=== PATIENT | female | born 1960 | race Caucasian/White ===

== ENCOUNTER → 2016-08-07 | Outpatient (CLI) | payer OTHER ==
[~2016-08-07] MED LIST: ASCO500C4 PO; ATOR-22 PO; CIPR-255 PO; LORA10TA5 PO; MULT-506 PO; OXYC7.5T65 PO
--- NOTE | 2016-08-07 09:06 | DIAGNOSTIC IMAGING REPORT ---
KUB CLINICAL HISTORY: N20.1 Ureteral [id number] COMPARISON STUDY: 07/11/2016 FINDINGS: 2 views are provided for interpretation. There has been interval placement of a double-pigtail right-sided nephroureteral stent. There is 8 mm lower pole right renal calculus. There is a punctate calcification projected over the midpole the left kidney. There is a punctate calcification within the pelvis. There is no pathologic bowel dilatation IMPRESSION: 1. Interval placement of a double-pigtail right-sided ureteral stent 2. 8 mm right renal calculus and equivocal punctate left renal calculus 3. Nonspecific punctate calcification within the pelvis. A tiny bladder calculus cannot be excluded Electronically signed by: Prem Owen M.D. 08/07/2016 9:04 AM Dictated Date/Time: 08/07/2016 9:02 AM
== END | disposition home or self-care (01) ==
LOC: C.RAD 08:08
PROVIDERS: ATTEND Nurse Practitioner Family
DX: N20.1 Calculus of ureter (principal); N20.0 Calculus of kidney

== ENCOUNTER → 2016-11-12 | Outpatient (CLI) | payer OTHER ==
[2016-11-12 16:59] LABS: BLOOD UREA NITROGEN 34 mg/dl (7-18); BUN/CREATININE RATIO 31.2 (10-20); CALCIUM 9.9 mg/dl (8.5-10.1); CARBON DIOXIDE 28 mmol/L (21-32); CHLORIDE 108 mmol/L (98-107); GLUCOSE 93 mg/dl (70-99); POTASSIUM 4.6 mmol/L (3.5-5.1); SODIUM 142 mmol/L (136-145)
[2016-11-12 17:00] LABS: PHOSPHORUS 3.7 mg/dl (2.5-4.9)
== END | disposition home or self-care (01) ==
LOC: C.LAB 15:42
PROVIDERS: ATTEND Internal Medicine Nephrology
DX: N20.0 Calculus of kidney (principal); N20.1 Calculus of ureter; N28.9 Disorder of kidney and ureter, unspecified

== ENCOUNTER → 2016-11-25 | Outpatient (CLI) | payer OTHER ==
[~2016-11-25] MED LIST changes: +OPTIRAY 300 IV PRN
--- NOTE | 2016-11-25 15:21 | DIAGNOSTIC IMAGING REPORT ---
IVP W/OR W/O TOMOGRAMS CLINICAL HISTORY: N28.9 Acute renal [id number] Ureteral uucnoV26.0 Nephro nephrocalcinosis COMPARISON STUDY: CT abdomen and pelvis dated 07/22/2015 FINDINGS: Nonobstructing calcification mid/lower aspect right kidney. Study is performed following the intravenous injection of 100 cc nonionic contrast. Prompt opacification of the right renal collecting system. Right ureter is normal in course and caliber. Bladder fills well. Post void shows a moderate residual within left upper urinary tract. There is distention of the left renal pelvis and left renal collecting systems. This appears to be on a chronic basis. This is not appear to be a significant degree of left ureteral distention. IMPRESSION: 1. Chronic nonobstructing left renal hydronephrosis. 2. Several nonobstructing lower pole right renal calcifications. 3. No evidence for an obstructing urinary tract calculus. Electronically signed by: Dayron Edmonds M.D. 11/25/2016 3:16 PM Dictated Date/Time: 11/25/2016 3:13 PM
== END | disposition home or self-care (01) ==
LOC: C.RAD 12:21
PROVIDERS: ATTEND Urology
DX: N13.2 Hydronephrosis with renal and ureteral calculous obstruction (principal); Z87.448 Personal history of other diseases of urinary system

== ENCOUNTER → 2017-05-09 | Outpatient (CLI) | payer OTHER ==
[~2017-05-09] MED LIST changes: -OPTIRAY 300 IV PRN; -OXYC7.5T65 PO
[2017-05-09 15:52] LABS: BLOOD UREA NITROGEN 33 mg/dl (7-18); BUN/CREATININE RATIO 27.7 (10-20); CALCIUM 9.6 mg/dl (8.5-10.1); CARBON DIOXIDE 27 mmol/L (21-32); CHLORIDE 106 mmol/L (98-107); GLUCOSE 90 mg/dl (70-99); PHOSPHORUS 3.3 mg/dl (2.5-4.9); POTASSIUM 4.8 mmol/L (3.5-5.1); SODIUM 139 mmol/L (136-145)
== END | disposition home or self-care (01) ==
LOC: C.LABBC 14:05
PROVIDERS: ATTEND Internal Medicine Nephrology
DX: N28.9 Disorder of kidney and ureter, unspecified (principal)

== ENCOUNTER → 2017-11-11 | Outpatient (CLI) | payer OTHER ==
[~2017-11-11] MED LIST changes: +FUROSEMIDE INJ 10 MG/ML 2 ML VIAL IV ONE; -LORA10TA5 PO; +LORA10TA6 PO
--- NOTE | 2017-11-11 12:43 | DIAGNOSTIC IMAGING REPORT ---
RENAL SCAN DIURETIC (MAG 3) CLINICAL HISTORY: 57 years-old Female presenting with N13.30 Hydronephrosis of left kidney. TECHNIQUE: A nuclear diuretic renal scan is performed following the IV administration of 8.6 mCi technetium 99m radiolabeled MAG3. Posterior blood flow images were acquired at one frame every two seconds for a total 30 frames. Posterior static cortical phase images were acquired every 5 minutes for a total of 45 minutes. IV Lasix was administered at 20 minutes. Renal curves were calculated. COMPARISON: 08/04/2015. FINDINGS: On the blood flow phase images, asymmetric perfusion of the kidneys with relative hypoperfusion of the left kidney. This is similar to prior exam. On the cortical phase images, normal accumulation of radiotracer in the right renal parenchyma and excretion into the right renal collecting system and bladder. Delayed accumulation of radiotracer in the left renal collecting system and delayed excretion. Subsequently, clearance phase imaging demonstrates time to peak on the right measuring 4 minutes and on the left was measuring 42 minutes. The time from max to half max pre-Lasix on the right measures 18 minutes and on the left not measurable. The time to half post Lasix on the right measures 6 minutes and on the left not measurable. Abnormal retention of radiotracer in the left renal collecting system after furosemide administration. Right: Approximate counts at 3 minutes: 600 Approximate counts at 20 minutes: 425 Approximate counts at peak: 700 Ratio of counts at 20 minutes/3 minutes: 0.71 Ratio of counts at 20 minutes/peak: 0.61 Left: Approximate counts at 3 minutes: 200 Approximate counts at 20 minutes: 450 Approximate counts at peak: 500 Ratio of counts at 20 minutes/3 minutes: 2.25 Ratio of counts at 20 minutes/peak: 0.9 Split function measurements of 74% on the right and 26% on the left. Reference ranges: Normal time to peak: 3 to 5 minutes. Normal time from peak to half max pre-Lasix: 8-12 minutes. Ratio of counts at 20 minutes/3 minutes should be less than 0.8 and 20 minutes/peak less than 0.3. Washout of at least 50% of tracer within 10 minutes post Lasix normal; if greater than 50% retention between 10 to 20 minutes post Lasix, indeterminate for obstruction; if greater than 50% retention beyond 20 minutes, suspected obstruction. IMPRESSION: 1. Findings consistent with left hydronephrosis. This is unchanged from the prior exam. 2. Diminished renal function of the right kidney from normal. No hydronephrosis. 3. Relative renal function on the right 74% and on the left kidney 26%. Electronically signed by: Calvin Kramer M.D. 11/11/2017 12:42 PM Dictated Date/Time: 11/11/2017 12:35 PM
--- NOTE | 2017-11-11 13:27 | DIAGNOSTIC IMAGING REPORT ---
KUB HISTORY: Bilateral nephrolithiasis. N20.1 Ureteral ejsteV41.0 [id number] Ureteric [id number] COMPARISON: IVP 11/25/2016. FINDINGS: The bowel gas pattern is non-obstructive. There is no organomegaly. Renal shadows are partially obscured by bowel gas. 8 mm calculus is noted within the region of the interpolar right kidney. No definite left-sided nephrolithiasis or ureteral calculi. Calcifications of the left hemipelvis suggest phleboliths. No pneumoperitoneum or pneumatosis. No fracture. Moderate degenerative changes about the spine and bilateral hips. IMPRESSION: Right-sided nephrolithiasis without ureteral calculi identified. Electronically signed by: Fred Goodwin M.D. 11/11/2017 1:26 PM Dictated Date/Time: 11/11/2017 1:23 PM
[2017-11-11 15:09] LABS: BLOOD UREA NITROGEN 30 mg/dl (7-18); CREATININE 1.03 mg/dl (0.60-1.20)
== END | disposition home or self-care (01) ==
LOC: C.NUCL 11:05
PROVIDERS: ATTEND Urology
DX: N20.2 Calculus of kidney with calculus of ureter (principal); N13.30 Unspecified hydronephrosis

== ENCOUNTER 2021-01-24 05:00 | Observation (INO) ==
--- NOTE | 2021-01-05 12:51 | PAT Medication Instructions ---
Medication Instructions Date of Service January 05, 2021 Home Medications amlodipine 2.5 mg tablet 2.5 mg PO QAM ascorbic acid (vitamin C) 500 mg tablet 500 mg PO QAM atorvastatin 20 mg tablet 20 mg PO HS multivitamin 1 tab PO QAM cholecalciferol (vitamin D3) 25 mcg (1,000 unit) capsule 1,000 units PO QAM naproxen sodium [Aleve] 220 mg PO Q12H PRN omeprazole 20 mg PO BID potassium citrate 15 meq PO TIDM ASK your surgeon for instructions naproxen sodium [Aleve] 220 mg PO Q12H PRN DO NOT take the morning of surgery ascorbic acid (vitamin C) 500 mg tablet 500 mg PO QAM multivitamin 1 tab PO QAM cholecalciferol (vitamin D3) 25 mcg (1,000 unit) capsule 1,000 units PO QAM potassium citrate 15 meq PO TIDM Take morning of surgery With a small sip of water, OTHERWISE NOTHING TO EAT OR DRINK AFTER MIDNIGHT: amlodipine 2.5 mg tablet 2.5 mg PO QAM omeprazole 20 mg PO BID Take evening before surgery atorvastatin 20 mg tablet 20 mg PO HS omeprazole 20 mg PO BID potassium citrate 15 meq PO TIDM Other Notes If you have any questions please call us at [phone] or [phone] or [phone] or [phone]
--- NOTE | 2021-01-10 13:58 | Anesthesiology Consultation ---
Date of Service January 10, 2021 Assessment & Plan (1) Encounter for pre-operative examination: COVID screening: Per assessment on 01/10: Travel screen negative, no known COVID- 19 positive contacts or current COVID-19 related symptoms. Patient vaccinated. Surgeon arranging preop COVID testing (scheduled 01/22; [place]). Awaiting results. Chart Review Chart Review: Acceptable Risk for Surgery and Patient seen in Pre Admission Testing Teaching & Discussion Pre-Anesthesia Teaching/Discussion Notes: Instructed NPO after midnight before surgery,except medications with 15 cc of water. Medication instructions provided according to the PAT guidelines. History Surgery Operation Date: 01/24/21 13:55 Proposed Procedures p Left Total Knee Arthroplasty - Mookie Betancourt MD Height/Weight Height: 5 ft 5 in Weight: 119.7 kg Allergies Allergy/AdvReac Type Severity Reaction Status Date / Time adhesive tape Allergy Unknown Redness Verified 01/10/21 14:12 silver Allergy Unknown Irritation Verified 01/10/21 14:12 (earrings/ring) Sulfa (Sulfonamide Allergy Unknown Facial Verified 01/10/21 14:12 Antibiotics) swelling tomato Allergy Unknown Hives Verified 01/10/21 14:12 latex AdvReac Mild Swelling, Verified 01/10/21 14:12 redness, contact dermatitis Medications Home Medications Medication Instructions Recorded Confirmed Last Taken amlodipine 2.5 mg tablet 2.5 mg PO QAM 04/19/19 01/02/21 04/27/20 ascorbic acid (vitamin C) 500 mg 500 mg PO QAM 04/19/19 01/02/21 04/27/20 tablet atorvastatin 20 mg tablet 20 mg PO HS 04/19/19 01/02/21 04/27/20 multivitamin 1 tab PO QAM 04/19/19 01/02/21 04/27/20 cholecalciferol (vitamin D3) 25 1,000 units PO QAM cap 01/24/20 01/02/21 04/27/20 mcg (1,000 unit) capsule naproxen sodium [Aleve] 220 mg PO Q12H PRN 04/28/20 01/02/21 04/28/20 06:00 220 mg omeprazole 20 mg PO BID 04/28/20 01/02/21 04/27/20 potassium citrate 15 meq PO TIDM 04/28/20 01/02/21 04/27/20 Past Medical History Medical History Arthritis of knee, left GERD (gastroesophageal reflux disease) controlled Hyperlipidemia Hypertension Obesity, Class III, BMI 40-49.9 (morbid obesity) Osteoarthritis Exercise / Class Metabolic Activity II 4-5 Yardwork/Stairs/Walk up hill (one FS (no CP, no SOB)) Past Family History Family History Mother Cancer uterine Other No family history of adverse response to anesthesia Past Surgical History Surgical History H/O lithotripsy Multiple H/O nephrolithotomy with removal of calculi History of colonoscopy History of cystoscopy Cystoscopy (07/23/15): MAC at [facility] History of parathyroid surgery Parathyroid nodule removal S/P left knee arthroscopy S/P left knee arthroscopy S/P JASVIR (total abdominal hysterectomy) with LSO Past Anesthesia History No Hx of Anesthesia Complications and No Family Hx of Anesthesia Complications History of PONV No Hx of PONV and No Hx of Motion Sickness Social History Smoking Status: Never smoker Do You Dip or Chew Tobacco: No Hx Alcohol Use: No (Quit 1999) Hx Substance Use: Yes (none in the last 10 years) substance use type: heroin Review of Systems Patient denies chest pain, shortness of breath, dyspnea on exertion, fever, chills, cough, wheezing, palpitations. Physical Exam Vital Signs VITALS BP 126/88 P 62 TEMP 98.8 SP02 98%RA RESP 16 PHYSICAL Full cervical extension range of motion. Full TMJ range of motion. TMD 4 finger breaths Mallampati Score 3 Dentition: missing molars Lungs: clear throughout to auscultation Cardiac: regular rate and rhythm, no murmurs noted Spine: normal Carotid arteries: negative bruit Extremities: no edema Lab Results Anesthesia Preop Results Results Anesthesia Widget: WBC 7.99 K/uL (4.8-10.8) 01/10/21 Hgb 14.5 g/dL (12.0-16.0) 01/10/21 Hct 44.0 % (37-47) 01/10/21 Plt 244 K/uL (130-400) 01/10/21 Na 141 mmol/L (136-145) 01/10/21 K 4.1 mmol/L (3.5-5.1) 01/10/21 Cl 107 mmol/L (98-107) 01/10/21 CO2 25 mmol/L (21-32) 01/10/21 BUN 27 mg/dl (7-18) H 01/10/21 Creat 1.03 mg/dl (0.6-1.2) 01/10/21 Glucose Level 126 mg/dl (70-99) H 01/10/21 PT 10.6 Seconds (9.0-12.0) 01/10/21 PTT 24.4 Seconds (21.0-31.0) 01/10/21 INR 1.0 (0.9-1.1) 01/10/21 HA1c 5.8 % (4.5-5.6) H 01/10/21 Urine Color Yellow 01/10/21 Urine Appearance Clear (Clear) 01/10/21 Urine pH 5.0 (4.5-7.5) 01/10/21 Urine Specific [place] 1.015 (1.000-1.030) 01/10/21 Urine Protein Negative (Negative) 01/10/21 Urine Glucose (UA) Negative (Negative) 01/10/21 Urine Ketones Negative (Negative) 01/10/21 Urine Blood Negative (Negative) 01/10/21 Urine Nitrite Negative (Negative) 01/10/21 Urine Bilirubin Negative (Negative) 01/10/21 Urine Urobilinogen Negative (Negative) 01/10/21 Urine Leukocyte Esterase 1+ (Negative) H 01/10/21 Urine WBC (Auto) 1-5 /hpf (0-5) 01/10/21 Urine RBC (Auto) 0-4 /hpf (0-4) 01/10/21 Urine Hyaline Casts (Auto) 1-5 /lpf (0-5) 01/10/21 Urine Epithelial Cells (Auto) 20-30 /lpf (0-5) H 01/10/21 Urine Bacteria (Auto) Negative (Negative) 01/10/21 Blood Type A Positive 01/10/21 Antibody Screen NEGATIVE 01/10/21 Testing Electrocardiogram Date: 01/10/21 Findings: + NSR @ (61) Chest X-Ray Date: 01/10/21 Findings: + NAD
--- NOTE | 2021-01-21 20:58 | History & Physical Report ---
Date of Service January 21, 2021 Assessment & Plan (1) Primary osteoarthritis of left knee: Treatment options discussed with patient. She has failed conservative measures as above and surgical intervention recommended. Risks, benefits and alternatives to surgery including but not limited to infection, DVT, pain, stiffness, need for revision surgery, damage to blood vessels, damage to nerves, PE, , were discussed with the patient and they wish to proceed. Plan for left total knee arthroplasty at [facility] on 01/24/[address] Betancourt. Will plan on Xarelto 10mg daily post op for DVT prophylaxis. Will plan on outpatient PT post op. All questions answered. She will follow up in the office post operatively. History of Present Illness Chief Complaint: Left knee pain Primary Care Provider: Audrey Larry, 60 year old female with PMHx significant for HTN, high cholesterol, GERD, who presents with ongoing left knee pain. Pain interfering with her daily activities. She has failed conservative measures including PT, cortisone and viscosupplementation, bracing. She would like to proceed with knee replacement. Patient denies headaches, sweats, fevers, chills, double vision, blurred vision, cough, sore throat, dysphagia, chest pain, sob, wheezing, n/v/d/c, numbness, tingling, fatigue, urinary symptoms, mood disorders. ROS positive for left knee pain and stiffness. Allergies Allergy/AdvReac Type Severity Reaction Status Date / Time adhesive tape Allergy Unknown Redness Verified 01/10/21 14:12 silver Allergy Unknown Irritation Verified 01/10/21 14:12 (earrings/ring) Sulfa (Sulfonamide Allergy Unknown Facial Verified 01/10/21 14:12 Antibiotics) swelling tomato Allergy Unknown Hives Verified 01/10/21 14:12 latex AdvReac Mild Swelling, Verified 01/10/21 14:12 redness, contact dermatitis Home Medications Medication Instructions Recorded Confirmed Type amlodipine 2.5 mg tablet 2.5 mg PO QAM 04/19/19 01/02/21 History ascorbic acid (vitamin C) 500 mg 500 mg PO QAM 04/19/19 01/02/21 History tablet atorvastatin 20 mg tablet 20 mg PO HS 04/19/19 01/02/21 History multivitamin 1 tab PO QAM 04/19/19 01/02/21 History cholecalciferol (vitamin D3) 25 1,000 units PO QAM cap 01/24/20 01/02/21 History mcg (1,000 unit) capsule naproxen sodium [Aleve] 220 mg PO Q12H PRN 04/28/20 01/02/21 History omeprazole 20 mg PO BID 04/28/20 01/02/21 History potassium citrate 15 meq PO TIDM 04/28/20 01/02/21 History Past Med/Surg History Medical History Arthritis of knee, left GERD (gastroesophageal reflux disease) controlled Hyperlipidemia Hypertension Obesity, Class III, BMI 40-49.9 (morbid obesity) Osteoarthritis Surgical History H/O lithotripsy Multiple H/O nephrolithotomy with removal of calculi History of colonoscopy History of cystoscopy Cystoscopy (07/23/15): MAC at [facility] History of parathyroid surgery Parathyroid nodule removal S/P left knee arthroscopy S/P left knee arthroscopy S/P JASVIR (total abdominal hysterectomy) with LSO Family History Mother Cancer uterine Other No family history of adverse response to anesthesia Social History Smoking Status: Never smoker Second Hand Exposure: Yes (as a child, home and work in the past); Hx Alcohol Use: No (Quit 1999) Hx Substance Use: Yes (none in the last 10 years) Preferred Language: Filipino Communication Ability: Effective Concrete Pointer Required: No Beliefs That Will Affect Care: None Current Living Situation: Other Current Living Situation Comment: lives with a friend, Patricia current occupational status: employed Feels Safe at Home: Yes Assistive Devices: Cane and Glasses Review of Systems All systems reviewed & are unremarkable except as noted in HPI & below Physical Exam Constitutional: well developed and well nourished; no acute distress Eyes: PERRL, conjunctivae normal, anicteric sclerae ENMT: external ear and nose normal, oropharynx normal Neck: trachea midline, no thyromegaly Respiratory: normal respiratory effort, lungs clear to auscultation Cardiovascular: RRR, no murmur, no edema Musculoskeletal: Left knee: Varus alignment. Mild effusion. Tenderness diffusely with max tenderness medial joint line. Moderate amount of crepitation with ROM. ROM 35-100 degrees. Positive varus stress, stable to valgus. Positive Nuria's Skin: no rashes, warm and dry Neurologic: patellar DTR's 2+ bilat, sensation intact Psychiatric: A+Ox3, euthymic affect Results & Data ([place]) Diagnostic Findings X-rays: left knee demonstrate very severe osteoarthritis of the left knee. There is widening of the femur and tibia with large medial osteophytes, bone on bone with some bone loss in the medial compartment, advanced patellofemoral osteoarthritis, bone on bone in the medial patellofemoral joint space. There is marked varus alignment of the knee, including gapping of the lateral compartmen t due to stretching out of the lateral collateral ligament. Opposite knee he has mild OA with neutral amount of varus alignment.
[2021-01-24] MEDS ORDERED: LR 500ML BOLUS, THEN 15ML/HR IV SCH (06:00)
[2021-01-24] MEDS ORDERED: ACETAMINOPHEN 500 MG TAB PO SCH (06:00)
[2021-01-24] MEDS ORDERED: GABAPENTIN 600 MG DOSE PO SCH (06:00)
[2021-01-24] MEDS ORDERED: FAMOTIDINE 20 MG TAB PO SCH (06:00)
[2021-01-24] MEDS ORDERED: TRANEXAMIC ACID 1,000 MG **IV Pre-op IV SCH (06:00)
[2021-01-24] MEDS ORDERED: ceFAZolin 2000MG 2,000 MG/15 ML SYR IV SCH (06:00)
[2021-01-24] MEDS ORDERED: TRANEXAMIC ACID 1,000 MG **IV Intra-op IV SCH (06:00)
[2021-01-24] MEDS ORDERED: ROPIVACAINE 0.5% HCL/PF 150 MG, BUPIVACAINE 0.75% MPF 20 ML, EPINEPHrine 30MG/30ML (OR ... INFIL SCH (06:00)
[2021-01-24] MEDS ORDERED: dexAMETHasone 4 MG TAB PO SCH (06:00)
[2021-01-24] MEDS ORDERED: METOCLOPRAMIDE HCL 10 MG TABLET PO SCH (06:00)
[2021-01-24] MEDS ORDERED: BUPIVACAINE 0.5 % 5 MG/1 ML PF 10ML VIAL ONE (06:14)
[2021-01-24] MEDS ORDERED: ONDANSETRON INJ 2 MG/ML 2 ML VIAL IV PRN ×2 (06:43→12:17)
[2021-01-24] MEDS ORDERED: ATROPINE SULFATE 0.1 MG/ML 10ML SYR IV PRN (06:43)
[2021-01-24] MEDS ORDERED: ePHEDrine sulfate 50 MG/ML AMP IV PRN (06:43)
[2021-01-24] MEDS ORDERED: fentaNYL citrate 100 MCG/2 ML VIAL IV PRN (06:43)
[2021-01-24] MEDS ORDERED: PROPOFOL IV EMULSION 10 MG/ML 20 ML VIAL IV ONE ×6 (06:52→10:33)
[2021-01-24] MEDS ORDERED: fentaNYL citrate 100 MCG/2 ML VIAL ONE (06:53)
[2021-01-24] MEDS ORDERED: MIDAZOLAM HCL 1 MG/ML 2ML VIAL ONE (06:53)
[2021-01-24] MEDS ORDERED: ORTHO JOINT ANESTHETIC ONE (07:02)
--- NOTE | 2021-01-24 07:22 | History & Physical Bridge Note ---
Date of Service January 24, 2021 History & Physical Bridge Note I have examined the patient, reviewed the History & Physical and in the interval since the performance of the History & Physical I have noted the following changes of clinical significance: no changes noted
[2021-01-24] MEDS ORDERED: KETAMINE 50 MG/5 ML SYRINGE ONE (09:44)
[2021-01-24] MEDS ORDERED: KETOROLAC 30 MG/ML VIAL ONE (09:44)
[2021-01-24] MEDS ORDERED: ONDANSETRON INJ 2 MG/ML 2 ML VIAL ONE (10:11)
--- NOTE | 2021-01-24 10:46 | Post Operative Brief Note ---
Immediate Post Op Note v1 Date of Surgery January 24, 2021 Pre & Post Diagnosis Operation Date: 01/24/21 07:15 Pre-Op Diagnosis: Primary Osteoarthritis, Left Knee, morbid obesity, metal allergy Post-Op Diagnosis: Primary Osteoarthritis, Left Knee, morbid obesity, metal allergy I identified the patient and participated in the time-out.: Yes Procedure Operation Date: 01/24/21 07:15 Actual Procedures p Left Total Knee Arthroplasty(Left), increased difficulty obesity BMI 43- Mookie Betancourt MD Surgeon Mookie Betancourt MD Steam Flattener Jose SONG Estimated Blood Loss 20 Findings Consistent with Post-Op Diagnosis Specimens Bone cuts Drains Hemovac Drain Anesthesia Type MAC Spinal Regional Complications none Disposition Accompanied Patient To Recovery: No Disposition: Recovery Room Overlapping Procedure I was immediately available: during the entire case.
--- NOTE | 2021-01-24 11:05 | Operative Report ---
Post Operative Report Pre & Post Diagnosis Operation Date: 01/24/21 07:15 Pre-Op Diagnosis: Primary Osteoarthritis, Left Knee, morbid obesity BMI 43.0, metal allergy, adhesive allergy Post-Op Diagnosis: Primary Osteoarthritis, Left Knee, morbid obesity BMI 43.0, metal allergy, adhesive allergy I identified the patient and participated in the time-out.: Yes Procedure Operation Date: 01/24/21 07:15 Actual Procedures p Left Total Knee Arthroplasty(Left), increased difficulty morbid obesity BMI 43.0- Mookie Betancourt MD Surgeon Mookie Betancourt MD Can Closing Machine Operator Jose SONG Estimated Blood Loss 20 Findings Consistent with Post-Op Diagnosis Specimens Bone cuts Drains Bone cuts Anesthesia Type MAC Spinal Regional Complications none Disposition Accompanied Patient To Recovery: No Disposition: Recovery Room Indications 60-year-old female with very severe osteoarthritis her left knee failed conservative management. Radiographs demonstrate severe varus alignment of her knee with bone loss and medial compartment tricompartmental osteoarthritis Description of Procedure Patient taken to the operating room the size under spinal MAC regional anesthesia. Patient was placed supine on the operating table. A pneumatic tourniquet was placed about the very obese left upper thigh. The left lower extremity was prepped and draped in sterile fashion. Knee exam demonstrated 15 to 20 degree varus alignment of the knee with 20 degree flexion contracture and flexion to 85 degrees. The leg was elevated exsanguinated with an Esmarch bandage and pneumatic tourniquet was raised to 350 millimeters of mercury. Skin incised sharply in longitudinal fashion. Subcutaneous flaps elevated. Incision was made through the medial retinaculum extending up in the mid third of the quadriceps tendon and down to the medial tibial tubercle. Intra-articular findings demonstrated severe tricompartmental osteoarthritis with bone loss medial compartment bone loss patella significant thinning of the patella. Patella width was measured and was only 11 mm. There are tricompartmental osteophytes loose bodies chronic medial meniscus tear large osteophytes no pseudolaxity. The [employer] total knee arthroplasty system was used. To expose the knee the scarred infrapatellar fat pad was resected. The meniscal remnants and cruciate ligaments were resected. All loose bodies were excised. The anterior fat pad over the femur in the area of the anterior flange of the femoral component was resected. Lateral synovial bands release. The femur was exposed. An intramedullary drill hole was made into the canal. A guide reginald was placed. Distal femoral cutting guide was adjusted to resect a 5 degree valgus cut with +2 cut off standard distal femoral resection was resected. The knee was extended and a subperiosteal peel lateral release was performed around the patella. Patella width was measured. Very limited cut was made due to the thin patella just enough to resect the articular surface. The 3 drill holes were made and the excess lateral facet was beveled off to prevent any impingement. Attention was taken back to the femur which was exposed with retractors and the femoral sizing guide was pinned in position. The drill holes were placed in 3 of external rotation to match epicondylar axis. Femur sized for a 4 component. The 4-in-1 cutting block was placed and then the anterior posterior and chamfer cuts are made. The tibia was then subluxed. The external tibial cutting guide was just to make a perpendicular cut to the long axis of the tibia 1 mm below the most deficient bone loss medial side. A lamina food safety manager was used and the flexion extension gaps were not balanced. All posterior osteophytes removed. All meniscal remnants were resected. First the superficial MCL was released off the tibia and the medial capsule was released and posterior medial capsule was released and semimembranosus was released and despite all those releases the gaps were not balanced so I had to piecrust the MCL with an 11 blade. The tibia was exposed and the trial tibial component size 4 was externally rotated in line with the tibial tubercle and pinned in position. The drills and punch for stem were used. The femoral trial size 4 was centered appropriately and the femoral notch was made with the reamers and box osteotomes. The collet was placed. Trial tibial inserts were placed and size 18 posterior stabilized gave balanced ligaments through flexion and extension. Patella tracking was assessed. The patella tracked centrally. I was able to get full extension and flexion to between 95 and 100 degrees. The trial components were then removed and the orthomix anesthetic cocktail was injected per protocol. The knee was flexed up to placed a bone graft into the femoral drill hole and at that point the tourniquet popped and was dysfunctional. I temporarily rewrap the Esmarch from the foot to the thigh left it wrapped around the upper thigh so we could perform the cementing with tourniquet in place. The knee was then copiously irrigated with pulsatile lavage saline solution. Final components were then cemented with Simplex cement. Final components were [employer] left size 4 Oxinium posterior stabilized femur, size 4 titanium tibia with a 20 x 10 mm cemented stem. Patella size 32 symmetrical. After the cement cured the tourniquet was taken off and not used through the remainder of the procedure. the Betadine soak was used per protocol. further pulsatile lavage irrigation performed and 2 Hemovac drains were brought out laterally. The quadriceps tendon and medial retinaculum were closed with figure of 8 #1 Vicryl sutures. The knee was taken through full range of motion and the repair was secure 0 through 100 degrees range of motion.. The subcutaneous tissues were closed with 2-0 Vicryl sutures. Skin was closed with interrupted 3-0 nylon vertical mattress sutures due to the metal allergy and adhesive allergy.. Nonadhesive sterile dressings were applied. Patient procedure well. Was increased level difficulty due to both h er obesity and due to closure requirement due to allergies and this increased length of time of surgery by 30 to 40 minutes. Jose SONG was my physician administrative assistant office manager who assisted in patient positioning prepping and draping,leg positioning ,soft tissue retraction and instrument management and participated in the closing and will participate in postoperative care of the patient. The patient tolerated the procedure well. I attest to the content of the Intraoperative Record and any orders documented therein. Any exceptions are noted below.
--- NOTE | 2021-01-24 11:10 | Anesthesiology Progress Note ---
Date of Service January 24, 2021 Anesthesia Post Procedure Vital Signs Vital Signs: Temp Pulse Pulse Resp BP Pulse Ox 01/24/21 11:00 77 18 124/81 98 01/24/21 10:50 79 14 116/77 94 01/24/21 10:47 97.3 F L 86 16 115/88 94 01/24/21 06:00 98.4 F 72 20 107/84 93 01/24/21 05:20 98.8 F 82 22 135/89 92 Pain Intensity Left Knee: Pain Intensity: 8 Transfer of Care Handoff Completed per policy Notes Mental Status: alert / awake / arousable and participated in evaluation Patient Amnestic to Procedure: Yes Nausea / Vomiting: adequately controlled Pain: adequately controlled Airway Patency, RR, SpO2: stable & adequate BP & HR: stable & adequate Hydration State: stable & adequate Neuraxial Anesthesia: was administered and sensory block is resolving Anesthetic Complications: no major complications apparent and Pt Satisfied with anesthetic care
--- NOTE | 2021-01-24 11:31 | XRay Report ---
LEFT KNEE 2 VIEWS History: Left total knee arthroplasty. Degenerative arthritis. Postop. FINDINGS: The patient is status post a left total knee arthroplasty. The hardware is intact. No fract ure or dislocation. Surgical drains are in place. IMPRESSION: Left total knee arthroplasty. No evidence for hardware complication. ACT 112: Negative or not required by law. Electronically signed by: Kj Brink M.D. 01/24/2021 11:30 AM
[2021-01-24] MEDS ORDERED: MAGNESIUM HYDROXIDE SUSP 30 ML UDC PO PRN (12:17)
[2021-01-24] MEDS ORDERED: NALOXONE HCL 0.4 MG/1 ML VIAL/CARP IV PRN (12:17)
[2021-01-24] MEDS ORDERED: METOCLOPRAMIDE HCL INJ 5 MG/ML 2 ML VIAL IV PRN (12:17)
[2021-01-24] MEDS ORDERED: bisacodyL 10 MG SUPP PR PRN (12:17)
[2021-01-24] MEDS ORDERED: HYDROmorphone INJ 0.5 MG/0.5 ML SYR IV PRN (12:17)
[2021-01-24] MEDS ORDERED: SODIUM CHLORIDE 0.9% 1000ML 1,000 ML IV SCH (12:17)
[2021-01-24] MEDS: ceFAZolin 2000MG 2,000 MG/15 ML SYR IV SCH ×2 (14:26→22:26)
[2021-01-24] MEDS: ACETAMINOPHEN 500 MG TAB PO SCH ×2 (14:26→21:36)
--- NOTE | 2021-01-24 14:39 | Consultation ---
Date of Consultation January 24, 2021 Assessment & Plan (1) S/P total knee arthroplasty: Post op day# 0 S/P Left TKA by Dr Serafin CORONEL#20ml -pain management per ortho -wound management per ortho -PT/OT as appropriate -DVT prophylaxis per ortho -incentive spirometry -monitor H&H for acute blood loss anemia;pre-op Hgb: 13 (2) Hypertension: -Continue amlodipine (3) Hyperlipidemia: -Continue atorvastatin (4) Hyperparathyroidism: S/P parathyroidectomy (5) Depression: Stable -Not currently on meds (6) GERD (gastroesophageal reflux disease): -Continue PPI (7) Obesity, Class III, BMI 40-49.9 (morbid obesity): BMI: 43 -Lifestyle modifications recommended DVT Prophylaxis -SCDs per ortho Disposition per primary service Follows with Dr Audrey Larry for routine care Pt was seen and care coordinated with Dr Lara. See addendum Thank you for this consultation. We will follow the patient with you during their hospital stay. You [facility] Supervising Physician Co-Signing Physician Notes I saw this patient with the physician certified physical therapist assistant, I participated in the history, physical, review of systems, and physical exam on this consult. I reviewed the medications with the patient and the physician certified physical therapist assistant and helped reconcile the medications. I helped take a detailed family and social history as well. I formulated the assessment and plan personally with the physician certified physical therapist assistant and went over it with the patient. ROS-No Headache, No Visual Changes, No Nausea, No Vomiting, No Fever, No Chills, No Neck Pain or Stiffness, No Chest Pain, No Palpitations, No SOB, No FORMAN, No Cough, No Sputum, No Wheezing, No Abdominal Pain, No Diarrhea, No Hematemesis, No Hemoptysis, No Unexpected Weight Loss, No Flank pain, No Melena, No Hematochezia, No Frequency, No Urgency, No Burning, No Hematuria, No Rashes, No Diaphoresis. Appetite is Normal, Sore LLE Physical Exam Gen-AAO x 3, NAD, Afebrile, Obese Head-NCAT, EOMI, PERRLA, Anicteric Sclera, No Posterior Pharyngeal Erythema Neck-Supple, No JVD, No Thyromegaly, No Masses, No LAD, No Bruits Lungs-Clear to Auscultation Bilaterally, No Rales, No Rhonchi, No Wheezing, No Crepitus Chest-No S4, +S1, +S2, No S3, No Murmurs, No Rubs, No Gallops, No Ectopy Abdomen-Soft, Bowel Sounds Present, Non Tender, Non Distended, No Hepatomegaly, No Splenomegaly, No Palpable Masses, No Rebound, No Rigidity, No Guarding Musculoskeletal-No CVAT Extremities-No Cyanosis, No Clubbing, No Edema Nuero-Cranial Nerves II-XII grossly intact, Motor WNL, DTRs WNL, Strength WNL, Non Focal Psych-Normal Mood History of Present Illness Requesting Physician: Dr Betancourt Reason for Consultation: Post op medical management Attending Physician: Mookie Betancourt MD History of Present Illness Pt is 60 y/o F with PMH HTN, dyslipidemia, hyperparathyroidism s/p parathyroidectomy, depression, h/o hypercalcemia, morbid obesity seen in medical consultation s/p L TKA today by Dr Betancourt. Post op pt reports is doing well. Denies pain currently. Denies leg paresthesias, N/V, dizziness, HAGAN, CP, SOB. Was able to eat lunch without difficulty. Denies fever/chills, diaphoresis, neck pain, palpitations, cough, sore throat, choking, otalgia, rhinorrhea, abdominal pain, extremity weakness, extremity edema, rashes, urinary symptoms. Allergies Allergy/AdvReac Type Severity Reaction Status Date / Time adhesive tape Allergy Unknown Redness Verified 01/24/21 05:26 silver Allergy Unknown Irritation Verified 01/24/21 05:26 (earrings/ring) Sulfa (Sulfonamide Allergy Unknown Facial Verified 01/24/21 05:26 Antibiotics) swelling tomato Allergy Unknown Hives Verified 01/24/21 05:26 latex AdvReac Mild Swelling, Verified 01/24/21 05:26 redness, contact dermatitis Home Medications Medication Instructions Recorded Confirmed Type amlodipine 2.5 mg tablet 2.5 mg PO QAM 04/19/19 01/24/21 History ascorbic acid (vitamin C) 500 mg 500 mg PO QAM 04/19/19 01/02/21 History tablet atorvastatin 20 mg tablet 20 mg PO 04/19/19 01/24/21 History multivitamin 1 tab PO QAM 04/19/19 01/02/21 History cholecalciferol (vitamin D3) 25 1,000 units PO QAM cap 01/24/20 01/02/21 History mcg (1,000 unit) capsule naproxen sodium [Aleve] 220 mg PO Q12H PRN 04/28/20 01/24/21 History omeprazole 20 mg PO BID 04/28/20 01/24/21 History potassium citrate 15 meq PO TIDM 04/28/20 01/02/21 History Patient History Medical History (Updated 01/24/21 @ 14:44 by Erin Ordaz PA-C) Arthritis of knee, left Depression GERD (gastroesophageal reflux disease) controlled Hyperlipidemia Hyperparathyroidism , secondary, non-renal Hypertension Obesity, Class III, BMI 40-49.9 (morbid obesity) Osteoarthritis Surgical History (Updated 01/24/21 @ 14:44 by Erin Ordaz PA-C) H/O lithotripsy Multiple H/O nephrolithotomy with removal of calculi History of colonoscopy History of cystoscopy Cystoscopy (07/23/15): MAC at [facility] History of parathyroid surgery Parathyroid nodule removal S/P left knee arthroscopy S/P left knee arthroscopy S/P JASVIR (total abdominal hysterectomy) with LSO Family History Mother Cancer uterine Other No family history of adverse response to anesthesia Social History Smoking Status: Never smoker Second Hand Exposure: Yes (as a child, home and work in the past); Do You Dip or Chew Tobacco: No; Tobacco Cessation Education Requested by Patient: No Hx Alcohol Use: No (Quit 1999) Hx Substance Use: Yes (none in the last 10 years) Preferred Language: Guinean Communication Ability: Effective Avid Editor Required: No Beliefs That Will Affect Care: None Current Living Situation: Other Current Living Situation Comment: lives with a friend, Patricia current occupational status: employed Other Information That Helps Us Care for You: No Feels Safe at Home: Yes Safety Concerns: Feels Safe At This Time Assistive Devices: Cane and Walker Assistive Devices Comment: partial top Review of Systems Review of Systems: All systems reviewed & are unremarkable except as noted in HPI & below Physical Exam Physical Exam: General: no distress, [place] Head: normocephalic, atraumatic Eyes: conjunctiva non-injected, anicteric ENT: normal inspection external ears, nose, mucous membranes moist Neck: supple, trachea midline Lungs: clear, no respiratory distress, no wheezing/rhonchi/rales CV: RRR, no murmur, no pretibial edema Abd: protuberant, normal BS, soft, non-tender Ext: no calf tenderness, LLE: +left leg with surgical dressing and ROSARIO wrap in place, hemovac in place with serosanguineous drainage, pedal pushes and pulls intact bilaterally, distal pulses intact Neuro: A&O x 3, no focal deficits noted, normal affect Skin: warm, dry Results & Data ([facility]) Vital Signs (Past 12 Hours) Vital Signs Temp Pulse Pulse Resp BP Pulse Ox 01/24/21 14:29 36.4 C L 87 18 145/93 H 95 01/24/21 14:06 36.4 C L 01/24/21 13:45 75 16 136/84 90 01/24/21 12:26 36.4 C L 66 16 126/83 96 01/24/21 11:50 36.3 C L 68 14 123/85 92 01/24/21 11:25 36.6 C 66 16 129/77 94 01/24/21 11:10 36.7 C 81 16 113/78 95 01/24/21 11:00 77 18 124/81 98 01/24/21 10:50 79 14 116/77 94 01/24/21 10:47 36.3 C L 86 16 115/88 94 01/24/21 06:00 36.9 C 72 20 107/84 93 01/24/21 05:20 37.1 C 82 22 135/89 92
[2021-01-24] MEDS ORDERED: POTASSIUM CITRATE 10 MEQ TAB PO SCH (21:00)
[2021-01-24] MEDS: DOCUSATE SODIUM 100 MG CAP PO SCH (21:36)
[2021-01-24] MEDS: SENNA 8.6 MG TAB PO SCH (21:36)
[2021-01-24] MEDS: PANTOprazole 40 MG TAB PO SCH (21:36)
[2021-01-24] MEDS: ATORVASTATIN 20 MG TAB PO SCH (21:36)
[2021-01-25] MEDS: ACETAMINOPHEN 500 MG TAB PO SCH ×3 (05:41→21:31)
[2021-01-25 06:15] LABS: Hematocrit (blood only) 37.5 % (37-47); Hemoglobin 12.3 g/dL (12.0-16.0); Mean Corpuscular Hemoglobin 29.2 pg (25-34); Mean Corpuscular Hgb Conc 32.8 g/dL (32-36); Mean Corpuscular Volume 89.1 fL (80-100); Mean Platelet Volume 11.1 fL (7.4-10.4); Platelet Count 229 K/uL (130-400); RDW Coefficient of Variation 14.1 % (11.5-14.5); Red Blood Count 4.21 M/uL (4.2-5.4); White Blood Count 20.84 K/uL (4.8-10.8)
[2021-01-25 06:56] LABS: BUN Creatinine Ratio 26.2 (10-20); Calcium 8.7 mg/dl (8.5-10.1); Creatinine Clr Calc Pharmacy 62.2 ml/min; Est GFR (African American) 56.1 ml/min; Est GFR (Non-African American) 48.4 ml/min; Potassium 4.5 mmol/L (3.5-5.1)
--- NOTE | 2021-01-25 07:02 | Orthopedic Progress Note ---
Date of Service January 25, 2021 Assessment & Plan (1) Status post left knee replacement: POD#1 Left TKA -PT/OT -Pain management as written -DVT prophylaxis-SCDs, TEDs, Xarelto 10mg daily -AM labs-hemoglobin at 12.3 this am from 14.5 preop. Mild increase in creatinine to 1.2 this morning. Leukocytosis likely reactive due to surgical stress/perioperative steroids. -D/C planning-home with plans on outpatient PT. Hemovac output 150 last shift. Will recheck later after PT to see how therapy goes and recheck drainage. Possible dishcarge today if PT goes well and drainage decreases. Admission and Anticipated Discharge Date Admission Date: January 24, 2021 Supervising Physician Co-Signing Physician Notes Patient seen and examined. Agree with NOHEMI Saleh's note as above. Patient staying for 1 more night due to high Hemovac drain output. Plan for discharge home tomorrow if drain output decreases. Subjective POD#1. Patient doing well, pain well controlled. No current complaints. Denies chest pain, sob, dizziness, n/v/d, headache, fever, chills. Review of Systems Review of Systems: All systems reviewed & are unremarkable except as noted in Subjective Physical Exam 2 Physical Exam: Dressing to left knee is c/d/i, hemovac intact. Toes mobile. good dorsiflexion. No calf tenderness, calf soft. Distally n/v status and senstation intact. Constitutional: well developed and well nourished; no acute distress Results & Data ([facility]) Vital Signs (Past 12 Hours) Vital Signs Temp Pulse Resp BP Pulse Ox 01/25/21 02:56 36.7 C 90 16 98/63 L 93 01/24/21 22:22 36.7 C 80 16 150/79 H 95 01/24/21 19:20 36.5 C 79 16 118/71 91
--- NOTE | 2021-01-25 08:36 | Hospitalist Progress Note ---
Date of Service January 25, 2021 Assessment & Plan (1) S/P total knee arthroplasty: S/P Left TKA by Dr Betancourt 01/24 EBL#20ml Resume Post Op Care per Surgery Protocol Incentive Spirometry 10x per Hour Resume Relative Home Meds Where Appropriate PT/OT with appropriate fall precautions PO Pain control DVT Prophylaxis Per Surgery Protocol Monitor Daily Labs, DC today ROS-No Headache, No Visual Changes, No Nausea, No Vomiting, No Fever, No Chills, No Neck Pain or Stiffness, No Chest Pain, No Palpitations, No SOB, No FORMAN, No Cough, No Sputum, No Wheezing, No Abdominal Pain, No Diarrhea, No Hematemesis, No Hemoptysis, No Unexpected Weight Loss, No Flank pain, No Melena, No Hematochezia, No Frequency, No Urgency, No Burning, No Hematuria, No Rashes, No Diaphoresis. Appetite is Normal Physical Exam Gen-AAO x 3, NAD, Afebrile, obese Head-NCAT, EOMI, PERRLA, Anicteric Sclera, No Posterior Pharyngeal Erythema Neck-Supple, No JVD, No Thyromegaly, No Masses, No LAD, No Bruits Lungs-Clear to Auscultation Bilaterally, No Rales, No Rhonchi, No Wheezing, No Crepitus Chest-No S4, +S1, +S2, No S3, No Murmurs, No Rubs, No Gallops, No Ectopy Abdomen-Soft, Bowel Sounds Present, Non Tender, Non Distended, No Hepatomegaly, No Splenomegaly, No Palpable Masses, No Rebound, No Rigidity, No Guarding Musculoskeletal-Full Range of Motion Bilaterally, No CVAT Extremities-No Cyanosis, No Clubbing, No Edema Nuero-Cranial Nerves II-XII grossly intact, Motor WNL, DTRs WNL, Strength WNL, Non Focal Psych-Normal Mood (2) Hypertension: -Continue amlodipine (3) Hyperlipidemia: -Continue atorvastatin (4) Hyperparathyroidism: S/P parathyroidectomy (5) Depression: Stable -Not currently on meds (6) GERD (gastroesophageal reflux disease): -Continue PPI (7) Obesity, Class III, BMI 40-49.9 (morbid obesity): BMI: 43 -Lifestyle modifications recommended DVT Prophylaxis -SCDs per ortho Disposition per primary service Follows with Dr Audrey Larry for routine care Pt was seen and care coordinated with Dr Lara. See addendum Thank you for this consultation. We will follow the patient with you during their hospital stay. You can [facility] via [employer] Admission and Anticipated Discharge Date Admission Date: January 24, 2021 Results & Data Results & Data ([facility]) Vital Signs (Past 12 Hours) Vital Signs Temp Pulse Pulse Resp BP Pulse Ox 01/25/21 07:45 36.5 C 64 18 136/83 94 01/25/21 02:56 36.7 C 90 16 98/63 L 93 01/24/21 22:22 36.7 C 80 16 150/79 H 95
[2021-01-25] MEDS: amLODIPine BESYLATE 5 MG TAB PO SCH (08:41)
[2021-01-25] MEDS: ASCORBIC ACID 500 MG TAB PO SCH (08:41)
[2021-01-25] MEDS: DOCUSATE SODIUM 100 MG CAP PO SCH ×2 (08:42→19:16)
[2021-01-25] MEDS: MULTIVITAMIN TAB PO SCH (08:42)
[2021-01-25] MEDS: PANTOprazole 40 MG TAB PO SCH ×2 (08:42→17:00)
[2021-01-25] MEDS: CHOLECALCIFEROL 1,000 UNITS 25 MCG TAB PO SCH (08:42)
[2021-01-25] MEDS: RIVAROXABAN 10 MG TABLET PO SCH (08:42)
[2021-01-25] MEDS ORDERED: MULTIVITAMIN TAB PO SCH (09:00)
[2021-01-25] MEDS ORDERED: POTASSIUM CITRATE 10 MEQ TAB PO SCH ×2 (12:00→17:00)
[2021-01-25] MEDS: POTASSIUM CITRATE 10 MEQ TAB PO SCH ×2 (12:20→16:59)
[2021-01-25] MEDS: ATORVASTATIN 20 MG TAB PO SCH (19:16)
[2021-01-25] MEDS: SENNA 8.6 MG TAB PO SCH (19:16)
[2021-01-26] MEDS: oxyCODONE HCL IR 5 MG TAB (IMMEDIATE RELEASE) PO PRN ×2 (02:47→07:24)
[2021-01-26] MEDS: ACETAMINOPHEN 500 MG TAB PO SCH (05:19)
[2021-01-26 06:27] LABS: Hematocrit (blood only) 37.8 % (37-47); Hemoglobin 12.2 g/dL (12.0-16.0); Mean Corpuscular Hemoglobin 29.3 pg (25-34); Mean Corpuscular Hgb Conc 32.3 g/dL (32-36); Mean Corpuscular Volume 90.6 fL (80-100); Mean Platelet Volume 10.7 fL (7.4-10.4); Platelet Count 225 K/uL (130-400); RDW Coefficient of Variation 14.5 % (11.5-14.5); RDW Standard Deviation 48.4 fL (36.4-46.3); Red Blood Count 4.17 M/uL (4.2-5.4); White Blood Count 11.93 K/uL (4.8-10.8)
[2021-01-26 06:39] VITALS: TEMP 97.7; O2SAT 92
[2021-01-26 06:58] LABS: BUN Creatinine Ratio 28.4 (10-20); Calcium 8.6 mg/dl (8.5-10.1); Creatinine Clr Calc Pharmacy 67.9 ml/min; Est GFR (African American) 62.3 ml/min; Est GFR (Non-African American) 53.8 ml/min; Potassium 4.2 mmol/L (3.5-5.1)
[2021-01-26] MEDS: DOCUSATE SODIUM 100 MG CAP PO SCH (07:21)
[2021-01-26] MEDS: RIVAROXABAN 10 MG TABLET PO SCH (07:22)
[2021-01-26] MEDS: ASCORBIC ACID 500 MG TAB PO SCH (07:22)
[2021-01-26] MEDS: amLODIPine BESYLATE 5 MG TAB PO SCH (07:22)
[2021-01-26] MEDS: CHOLECALCIFEROL 1,000 UNITS 25 MCG TAB PO SCH (07:22)
[2021-01-26] MEDS: MULTIVITAMIN TAB PO SCH (07:23)
[2021-01-26] MEDS: POTASSIUM CITRATE 10 MEQ TAB PO SCH (07:23)
[2021-01-26] MEDS: PANTOprazole 40 MG TAB PO SCH (07:26)
[2021-01-26 07:35] VITALS: BP 145/93; PULSE 87
--- NOTE | 2021-01-26 08:09 | Orthopedic Progress Note ---
Date of Service January 26, 2021 Assessment & Plan (1) Status post left knee replacement: POD#2 Left TKA -PT/OT -Pain management as written -DVT prophylaxis-SCDs, TEDs, Xarelto 10mg daily -AM labs-as noted. Leukocytosis resolving nicely. Creatinine within normal limits. Hemoglobin stable. -D/C planning-home with plans on outpatient PT. plan for discharge to home today. Admission and Anticipated Discharge Date Admission Date: January 24, 2021 Subjective Postop day 2 Patient sitting up eating breakfast this morning. She has no complaints this morning. Pain is controlled. Her drain was removed earlier this morning without incident. She is looking forward to going home today. Physical Exam Physical Exam: Dressings are clean, dry, and intact. Calves are soft and nontender. Neurovascular is intact. Toes are mobile. Results & Data ([facility]) Vital Signs (Past 12 Hours) Vital Signs Temp Pulse Pulse Pulse Resp BP BP 01/26/21 07:33 36.5 C 70 87 69 16 125/81 145/93 H 01/26/21 06:39 36.5 C 69 16 125/81 01/26/21 05:20 36.6 C 71 18 117/73 Pulse Ox 01/26/21 07:33 92 01/26/21 06:39 92 01/26/21 05:20 95 Laboratory Results Laboratory Results WBC 11.93 K/uL (4.8-10.8) H 01/26/21 06:00 RBC 4.17 M/uL (4.2-5.4) L 01/26/21 06:00 Hgb 12.2 g/dL (12.0-16.0) 01/26/21 06:00 Hct 37.8 % (37-47) 01/26/21 06:00 MCV 90.6 fL (80-100) 01/26/21 06:00 MCH 29.3 pg (25-34) 01/26/21 06:00 MCHC 32.3 g/dL (32-36) 01/26/21 06:00 RDW Std Deviation 48.4 fL (36.4-46.3) H 01/26/21 06:00 RDW Coeff of Gonzalo 14.5 % (11.5-14.5) 01/26/21 06:00 Plt Count 225 K/uL (130-400) 01/26/21 06:00 MPV 10.7 fL (7.4-10.4) H 01/26/21 06:00 Sodium 140 mmol/L (136-145) 01/26/21 06:00 Potassium 4.2 mmol/L (3.5-5.1) 01/26/21 06:00 Chloride 110 mmol/L (98-107) H 01/26/21 06:00 Carbon Dioxide 27 mmol/L (21-32) 01/26/21 06:00 Anion Gap 3.0 (3-11) 01/26/21 06:00 BUN 31 mg/dl (7-18) H 01/26/21 06:00 Creatinine 1.10 mg/dl (0.6-1.2) 01/26/21 06:00 Est Cr Clr Drug Dosing 67.9 ml/min 01/26/21 06:00 Est GFR ( Amer) 62.3 ml/min 01/26/21 06:00 Est GFR (Non-Af Amer) 53.8 ml/min 01/26/21 06:00 BUN/Creatinine Ratio 28.4 (10-20) H 01/26/21 06:00 Glucose 103 mg/dl (70-99) H 01/26/21 06:00 Calcium 8.6 mg/dl (8.5-10.1) 01/26/21 06:00 COVID-19 Eval Order Covid19 [facility] 01/24/21 05:20 SARS-CoV-2, RNA, NAAT NEGATIVE (NEGATIVE) 01/24/21 05:20 Impressions
--- NOTE | 2021-01-26 19:00 | Discharge Summary ---
Date of Service January 26, 2021 Admission HPI Per Admitting Provider 60 year old female with PMHx significant for HTN, high cholesterol, GERD, who presents with ongoing left knee pain. Pain interfering with her daily activities. She has failed conservative measures including PT, cortisone and viscosupplementation, bracing. She would like to proceed with knee replacement. Patient denies headaches, sweats, fevers, chills, double vision, blurred vision, cough, sore throat, dysphagia, chest pain, sob, wheezing, n/v/d/c, numbness, tingling, fatigue, urinary symptoms, mood disorders. ROS positive for left knee pain and stiffness. Admission Exam Per Admitting Provider Constitutional: well developed and well nourished; no acute distress Eyes: PERRL, conjunctivae normal, anicteric sclerae ENMT: external ear and nose normal, oropharynx normal Neck: trachea midline, no thyromegaly Respiratory: normal respiratory effort, lungs clear to auscultation Cardiovascular: RRR, no murmur, no edema Musculoskeletal: Left knee: Varus alignment. Mild effusion. Tenderness diffusely with max tenderness medial joint line. Moderate amount of crepitation with ROM. ROM 35-100 degrees. Positive varus stress, stable to valgus. Positive Nuria's Skin: no rashes, warm and dry Neurologic: patellar DTR's 2+ bilat, sensation intact Psychiatric: A+Ox3, euthymic affect Principal Diagnosis Left knee osteoarthritis Discharge Exam Dressings are clean, dry, and intact. Calves are soft and nontender. Neurovascular is intact. Toes are mobile. Constitutional well developed and well nourished; no acute distress Discharge Data Allergies Allergy/AdvReac Type Severity Reaction Status Date / Time adhesive tape Allergy Unknown Redness Verified 01/24/21 05:26 silver Allergy Unknown Irritation Verified 01/24/21 05:26 (earrings/ring) Sulfa (Sulfonamide Allergy Unknown Facial Verified 01/24/21 05:26 Antibiotics) swelling tomato Allergy Unknown Hives Verified 01/24/21 05:26 latex AdvReac Mild Swelling, Verified 01/24/21 05:26 redness, contact dermatitis Consultations 01/19/21 16:33 Consult Hospitalist Routine Procedures Performed Operation Date: 01/24/21 07:15 Actual Procedures p Left Total Knee Arthroplasty(Left) - Mookie Betancourt MD Ordered Studies 01/24/21 05:00 US - OR guided needle placemen Routine Hospital Course (1) Status post left knee replacement: Patient presented for same day admission following left total knee arth roplasty on 01/24/21. She tolerated procedure well. The Patient had an uneventful hospital course. Post-operatively, her activity was progressed and well tolerated. They participated in PT with ambulation distance of 350 feet. ROM of operative knee reached 87 degrees. Labs remained stable- lowest hemoglobin recorded: 12.2. Dr. Aries Lara of medical service was consulted for medical management during admission. Pain controlled on oral medications. Please refer to daily progress notes and PT notes for complete details. After exam on 01/26/21, patient was felt to be stable for discharge home with plans on attending outpatient PT. Patient will f/u in the office in about 2 weeks for further evaluation including x-rays and incision check, sooner if having any issues or concerns. POD#2 Left TKA -PT/OT -Pain management as written -DVT prophylaxis-SCDs, TEDs, Xarelto 10mg daily -AM labs-as noted. Leukocytosis resolving nicely. Creatinine within normal limits. Hemoglobin stable. -D/C planning-home with plans on outpatient PT. plan for discharge to home today. Lab Results 01/24/21 01/24/21 01/25/21 Range/Units 05:20 05:20 05:18 WBC 20.84 H (4.8-10.8) K/uL RBC 4.21 (4.2-5.4) M/uL Hgb 12.3 (12.0-16.0) g/dL Hct 37.5 (37-47) % MCV 89.1 (80-100) fL MCH 29.2 (25-34) pg MCHC 32.8 (32-36) g/dL RDW Std Deviation 46.0 (36.4-46.3) fL RDW Coeff of Gonzalo 14.1 (11.5-14.5) % Plt Count 229 (130-400) K/uL MPV 11.1 H (7.4-10.4) fL Sodium (136-145) mmol/L Potassium (3.5-5.1) mmol/L Chloride (98-107) mmol/L Carbon Dioxide (21-32) mmol/L Anion Gap (3-11) BUN (7-18) mg/dl Creatinine (0.6-1.2) mg/dl Est Cr Clr Drug Dosing ml/min Est GFR ( Amer) ml/min Est GFR (Non-Af Amer) ml/min BUN/Creatinine Ratio (10-20) Glucose (70-99) mg/dl Calcium (8.5-10.1) mg/dl COVID-19 Eval Order Covid19 [facility]Now [facility] SARS-CoV-2, RNA, NAAT NEGATIVE (NEGATIVE) 01/25/21 01/26/21 01/26/21 Range/Units 05:18 06:00 06:00 WBC 11.93 H (4.8-10.8) K/uL RBC 4.17 L (4.2-5.4) M/uL Hgb 12.2 (12.0-16.0) g/dL Hct 37.8 (37-47) % MCV 90.6 (80-100) fL MCH 29.3 (25-34) pg MCHC 32.3 (32-36) g/dL RDW Std Deviation 48.4 H (36.4-46.3) fL RDW Coeff of Gonzalo 14.5 (11.5-14.5) % Plt Count 225 (130-400) K/uL MPV 10.7 H (7.4-10.4) fL Sodium 139 140 (136-145) mmol/L Potassium 4.5 4.2 (3.5-5.1) mmol/L Chloride 110 H 110 H (98-107) mmol/L Carbon Dioxide 25 27 (21-32) mmol/L Anion Gap 4.0 3.0 (3-11) BUN 31 H 31 H (7-18) mg/dl Creatinine 1.20 1.10 (0.6-1.2) mg/dl Est Cr Clr Drug Dosing 62.2 67.9 ml/min Est GFR ( Amer) 56.1 62.3 ml/min Est GFR (Non-Af Amer) 48.4 53.8 ml/min BUN/Creatinine Ratio 26.2 H 28.4 H (10-20) Glucose 126 H 103 H (70-99) mg/dl Calcium 8.7 8.6 (8.5-10.1) mg/dl COVID-19 Eval Order SARS-CoV-2, RNA, NAAT (NEGATIVE) Total Time Total Time Spent Total Time Spent (In Minutes): 20 Discharge Plan Discharge Items Patient Disposition: Home - Self-Care Reason For Visit: Primary Osteoarthritis, Left Knee Discharge Diagnosis: Left knee osteoarthritis Activity: Per Instructions section Non-emergency contact: Surgeon Call non-emergency contact if: you have any medication questions, your pain is not controlled, your pain is worsening, your pain is concerning for you, you have a fever, your temperature is above 101, your wound has increased redness and your wound has increased drainage Follow-up/Referrals: Audrey Larry DO [Primary Care Provider] - Diet: Regular Addtl Attending Provider Instructions: ACTIVITY RECOMMENDATIONS: SELF CARE INSTRUCTIONS AFTER TOTAL KNEE REPLACEMENT A. You may need to continue a physical therapy program after discharge from the hospital. There are several options available to you. Your doctor will assist you in selecting the best one for you. 1. An out-patient facility 2 to 3 times a week for therapy or home therapy. 2. Continue working on all exercises taught to you in the hospital. Your goals should be to increase bending of your knee to 90 degrees and beyond and to fully straighten your knee. B. You may progress at your own pace from walking with a walker or crutches to a cane; then to no assistive devices. C. Make walking a part of your daily routine. Be up as much as comfortable with rest periods throughout the day. Rest with leg elevation is very important. Use the ice wrap frequently for the first 3-4 weeks. D. There are no restrictions on activities. You may ride in a car, shop, participate in [employer] and all social activities. E. Wear the long elastic stockings (VIRGIE hose) 20 hours a day for 2 weeks after surgery. They can be removed several times a day for laundering and for a bath. F. You may shower, no tub baths until cleared by your doctor. SPECIAL CARE INSTRUCTIONS: VERY IMPORTANT TO READ AND REVIEW A. There are a few signs you need to watch for after you are home. Call [facility] [place] if you notice any of the followin. Increased severe knee pain. Some pain is expected especially when you exercise. 2. Increased swelling in your leg or knee; pain or swelling of the calf muscle in either lower leg. 3. Any fluid drainage from the incision. 4. Shortness of breath or chest pain. B. Please call [facility] [place] at if you have any concerns or questions about your operation or recovery. The doctor or his nurse will return your call promptly. C. You must take antibiotics before dental work, bladder, bowel or other surgery. Your doctor will provide you with a permanent care to carry describing this precaution. IMPORTANT: * REMEMBER TO TAKE ASPIRIN, 81 MG, TWICE DAILY FOR 4 WEEKS UNLESS OTHERWISE DIRECTED. THIS IS YOUR BLOOD THINNER. * HIGH RISK PATIENTS MAY BE PRESCRIBED A STRONGER BLOOD THINNER. THIS WILL BE PROVIDED AT DISCHARGE. * CALL IF INCREASED PAIN, REDNESS, DRAINAGE OR FEVER GREATER THAT 101. * WEAR VIRGIE HOSE 20 HOURS PER DAY FOR 2 WEEKS. * * CHANGE DRESSING DAILY. KEEP WOUND COVERED WITH A DRESSING UNTIL SEEN BACK IN THE OFFICE. YOU MAY USE 4X4 GAUZE, TAPE OR AN ACEWRAP TO KEEP DRESSING IN PLACE. . IF INCISION IS LEAKING THROUGH DRESSING, CALL THE OFFICE . FOLLOW UP VISIT: If appointment is not already scheduled: Please call [facility] to make a follow-up appointment for 2 weeks after your surgery at . Stand-Alone Forms: My [facility] Apply[employer] Medications and DC Order Prescriptions: New acetaminophen 500 mg Tablet 1,000 mg PO Q8 Qty: 60 RF: 0 oxycodone 5 mg Tablet 5 - 10 mg PO .Q4h-6h MDD 6 PRN (Reason: pain) Qty: 30 RF: 0 Xarelto 10 mg Tablet 10 mg PO DAILY Qty: 30 RF: 0 cefadroxil 500 mg capsule 500 mg PO BID Qty: 14 RF: 0 Continued amlodipine 2.5 mg tablet 2.5 mg PO QAM RF: 0 atorvastatin 20 mg tablet 20 mg PO HS RF: 0 ascorbic acid (vitamin C) [C-500] 500 mg tablet 500 mg PO QAM RF: 0 multivitamin tablet 1 tab PO QAM RF: 0 cholecalciferol (vitamin D3) 25 mcg (1,000 unit) capsule 1,000 units PO QAM RF: 0 omeprazole 20 mg capsule,delayed release(DR/EC) 20 mg PO BID RF: 0 potassium citrate 15 mEq tablet extended release 15 meq PO TIDM RF: 0 Discontinued naproxen sodium [Aleve] 220 mg Tablet 220 mg PO Q12H PRN (Reason: Pain) RF: 0 Discharge Orders: Discharge Order (Routine); Ordered 01/26/21 Ordered By: Mehdi Price/Other Patient Handouts: How Your Knee Works, Understanding Knee Replacement, After Knee Replacement: Back at Home Admission Data Admit Date/Time: 01/24/21 10:51 Attending Provider: Mookie Betancourt Admit Provider: Mookie Betancourt Primary Care Provider: Audrey Larry Other Providers: Aries Lara ; Lisa Rubio Other Interventions: Discharge Summary Assessment (RN) Last Done: 01/26/21 07:33
== END 2021-01-26 11:09 | disposition home or self-care (01) ==
LOC: ASU 05:00 → 3E 05:00